=== PATIENT | female | born 1980 | race Caucasian/White ===

== ENCOUNTER 2020-04-13 14:24 | Emergency (ER) | payer MEDICARE, MEDICAID, SELFPAY ==
[2020-04-13 14:27] VITALS: BP 126/96; PULSE 87; RESP 16; TEMP 36.8; O2SAT 97; BMI 30.4
--- NOTE | 2020-04-13 14:42 | ED.DCSUM_ITS ---
History of Present Illness Chief Complaint: Back Informant: Patient Narrative: Patient is a 39-year-old female who presents to the emergency department for left-sided low back/buttock pain. Started earlier today. She does have a history of this before in the past. The last time it flared up was 2 years ago. She denies any falls or trauma to the area. When lying still the pain is nonexistent. Any movements since the pain up to a 10 out of 10. She states that walking aggravates her symptoms. She denies any midline pain. The pain does go down the lateral aspect of her left thigh but not past her knee. She denies any urinary/bowel incontinence/retention. No saddle anesthesia. He does have a history of IV drug abuse but states it is been over 2 years since she last used. She denies any fevers or chills. No abdominal pain. No chest pain or shortness of breath. She denies any loss of sensation or weakness in her lower extremities. She states that she got onto an inversion table which helped her symptoms while she was on it but after she got off her symptoms returned imm ediately. Has not tried any medications for it. Past Medical History - Allergies and Home Meds Allergies/Adverse Reactions: Allergies doxycycline Allergy (Verified 04/13/20 14:26) Rash lamotrigine [From Lamictal] Allergy (Verified 04/13/20 14:26) NEEDS FOLLOW-UP sulfamethoxazole [From Bactrim] Allergy (Verified 04/13/20 14:26) Rash trimethoprim [From Bactrim] Allergy (Verified 04/13/20 14:26) Rash vancomycin Allergy (Verified 04/13/20 14:26) Rash Primary Care Physician: [facility],Out of [NON-STAFF] - 3-5 Days if not improving Prior records reviewed: Yes Past Medical History: - - Bipolar Smoking Status: Current every day smoker Drugs: None Review of Systems All systems negative except as indicated General: Denies: Chills, Fever, Sweats Eyes: Denies: Visual changes - bilaterally, Diplopia ENT: Denies: Rhinorrhea, Sore throat Cardiovascular: Denies: Chest pain, Palpitations Respiratory: Denies: Dyspnea, Cough, Dyspnea on exertion Gastrointestinal: Denies: Abdominal pain, Nausea, Vomiting, Diarrhea Genitourinary: Denies: Dysuria, Hematuria, Frequency Musculoskeletal: Reports: Back pain, Extremity Pain. Denies: Neck pain Skin: Denies: Rash, Wounds Neurological: Denies: Headache, Weakness, Numbness Physical Exam Vital Signs/Narrative: Vital Signs Temp Pulse Resp BP Pulse Ox 04/13/20 14:27 98.2 F 87 16 126/96 H 97 Inital Vital Signs reviewed: Yes General: Well nourished, Well developed, No Acute Distress Head: Normocephalic, Atraumatic Eyes: Perrl, EOMI ENT: Moist mucous membranes, No rhinorrhea Neck: Supple, Nontender Cardiovascular: Regular rate, Regular rhythm, No murmurs Respiratory: No distress, CTA bilaterally, Chest nontender Abdomen: Soft, Nontender, Nondistended Back: Normal Inspection. Negative for: CVA tenderness, Spinal tenderness Extremities: No edema, - - Patient has tenderness over the left buttock around the piriformis. No midline tenderness. No pain with passive range of motion of the left hip, knee or leg. He does have pain when actively raising her left leg but not the right. Negative straight leg test. Neurovascularly intact. No overlying skin changes.. Negative for: Edema, Calf Tenderness Skin: Normal color, No rash Neurological: Alert, Oriented x3, Cranial nerves II-XII grossly intact, Normal Strength, Normal Sensation Psychological: Normal affect, Normal Mood Diagnostic/Tx/Re-eval - Medical Decision Making Patient presents to the emerge department for acute on chronic exacerbation of her left buttock/low back pain. This is nontraumatic. Upon arrival to the emergency department vital signs within normal limits. Does not have any red flag symptoms for acute surgical emergency. The only concerning aspect of the story she does have a history of IV drug abuse but this has been 2 years since she last used. She does not have any midline pain. No pain whenever I range h er hip. She has previously had imaging done 2 years ago. Based on her physical exam I do not feel that imaging needs to be repeated now. We will give a dose of Toradol. Patient states she is feeling much better after shot of Toradol. We will give a dose of steroids and Naprosyn to treat at home. She is to follow-up with her PCP. Warning signs and symptoms for which to return to the emerge department are reviewed with her. She understands and is agreeable this plan. Patient was able to ambulate out of ED on her own power without difficulty. ED Disposition - Plan for ED Patient: Disposition: Home or Assisted Living Diagnosis: Low back pain Instructions: ED Back Pain Acute or Chronic Prescriptions: Prednisone [Deltasone] 40 mg PO DAILY #10 tab Transmission Status: Received by Penemarie K Murphy #30 Naproxen [Naprosyn] 500 mg PO BID PRN #20 tab Transmission Status: Received by Penem[facility] K [facility]30 Referrals: [facility],Out of [NON-STAFF] - 3-5 Days if not improving
[2020-04-13] MEDS: Ketorolac 30 MG/ML Syringe IM (14:47)
== END 2020-04-13 16:23 | disposition home or self-care (01) ==
PROVIDERS: Emergency Provider Emergency Medicine
DX: M54.5 Low back pain (principal); F31.9 Bipolar disorder, unspecified; F17.200 Nicotine dependence, unspecified, uncomplicated
CPT/HCPCS: 96372; 99282